=== PATIENT | male | born 1970 | race Hispanic/Latino ===

== ENCOUNTER 2018-05-26 11:22 | Emergency (ER) | payer OTHER ==
[2018-05-26] MEDS ORDERED: NA BORATE/BORIC AC/H2O/NACL 120 ML OPHTH IRRIG SOLN ONE (13:05)
[2018-05-26] MEDS ORDERED: FLUORESCEIN SODIUM 1 STRIP STRIP ONE (13:05)
[2018-05-26] MEDS ORDERED: TETRACAINE HCL 0.5% 4 ML OPHTH SOLN ONE (13:05)
[2018-05-26] MEDS ORDERED: TETANUS/DIPHTHERIA TOXOID [ADULT] 0.5 ML VIAL IM ONE (13:39)
== END 2018-05-26 14:01 | disposition home or self-care (01) ==
LOC: EDH 11:22
DX: S05.02XA Injury of conjunctiva and corneal abrasion without foreign body, left eye, initial encounter (principal); Z87.891 Personal history of nicotine dependence; X58.XXXA Exposure to other specified factors, initial encounter; Y93.89 Activity, other specified; Y92.89 Other specified places as the place of occurrence of the external cause; Y99.8 Other external cause status
CPT/HCPCS: 90471; 90714

== ENCOUNTER 2019-01-15 12:10 | Emergency (ER) | payer OTHER ==
[2019-01-15] MEDS ORDERED: KETOROLAC TROMETHAMINE 30MG/ML ONE (12:43)
[2019-01-15] MEDS ORDERED: ACETAMINOPHEN EXTRA STRENGTH 500 MG TABLET ONE (12:50)
== END 2019-01-15 14:48 | disposition left against medical advice (07) ==
LOC: EDH 12:10
DX: M54.5 Low back pain (principal); W18.39XA Other fall on same level, initial encounter; Y93.89 Activity, other specified; Y92.89 Other specified places as the place of occurrence of the external cause; Y99.8 Other external cause status
CPT/HCPCS: 72100; 72131; 99284; J1885

== ENCOUNTER 2024-01-19 05:25 | Emergency (ER) | payer SELFPAY ==
[~2024-01-19] VITALS: Ht 167.6 cm; Wt 77.1 kg
[2024-01-19 05:27] VITALS: TEMP 98.1
--- NOTE | 2024-01-19 05:31 | ERN ---
ED Note History of Present Illness Stated Complaint: C/O ABD PAIN WITH N X V AFTER FALL 2 DAYS AGO Chief Complaint: Abdominal Pain Time Seen by MD: 05:27 Dictation: This is a 53-year-old male who looks much older than that has never had any routine health care was brought into the hospital emergency room with complaints of lower back pain and abdominal discomfort as well as distention for the past few days. Patient also reports some nausea and vomitings. No history of any fevers or chills, hematemesis or melena. He reports falling 2 days ago after accidentally tripping and basically landed on his buttocks. No loss of consciousness. No weakness. No new visual disturbance but the reports poor vision due to left eye corneal opacification. No history of any bladder or bowel incontinence. No ambulatory issues. Temperature 98.1 pulse 84 respirations 20 blood pressure 116/65 pulse oximetry 95% on room air Allergies: Coded Allergies: No Known Allergies (Unverified Allergy, Unknown, 01/19/24) Past Medical History Family History: Negative Social History: Smokers, ETOH RN Note Reviewed/Agreed w/PFSH: Yes Review of System Dictation Constitutional: Negative for fever,chills, and weight loss Eyes: Negative for injury, pain,redness, and discharge ENT: Negative for injury,pain or swelling Cardiovascular: Negative for chest pain, palpitations, and edema Respiratory: Negative for shortness of breath, cough, and wheezing, Abdomen/GI: Positive for abdominal pain, nausea, vomiting, denies any diarrhea, and constipation Back: Positive for recent fall and pain : Negative for injury, bleeding and discharge MS/Extremity: Negative for injury and deformity Skin: Negative for rash, and discoloration Neuro: Negative for headache, weakness, numbness, tingling, and seizure Psych: Negative for suicide ideation, homicidal ideation, and hallucinations Initial Vital Sign VS Vital Signs Date Time Temp Pulse Resp B/P (MAP) Pulse Ox O2 Delivery O2 Flow Rate FiO2 01/19/24 05:27 98.1 84 20 116/65 100 Room Air 01/19/24 06:01 0 21 Physical Exam Dictation General: awake, alert, NAD appears much older and chronically sick Head/Face: Normocephalic, atraumatic Eyes: PERRL, EOMI, vision at baseline left eye corneal opacification ENT: oral cavity clear, TMs clear, no signs of infection Neck: Trachea midline, supple, no nuchal rigidity Cardiovascular: RRR, normal S1/S2, No MRGs, no JVD Respiratory: CTAB, no respiratory distress, No rales or wheezes Abdomen: Soft, mild-tender mildly distended could not appreciate hepatosplenomegaly or any masses. MS/Extremity: Pulses equal, no cyanosis, neurovascular intact, FROM tenderness in the lower right sacroiliac area Neuro: COAx4, GCS 15, strength 5/5, CN 2-12 intact, normal cerebellar exam, normal gait, Psych: Normal behavior, mood, and affect normal Extremities-trace edema without any palpable cords, Homans sign is negative Results (Laboratory/Radiology) Laboratory/Radiology Laboratory Tests Test 01/19/24 05:42 01/19/24 06:00 White Blood Count 10.4 K/uL (4.8-10.8) Red Blood Count 2.71 MIL/uL (4.50-6.20) L Hemoglobin 9.1 g/dL (14.0-18.0) L Hematocrit 26.5 % (42-54) L Mean Corpuscular Volume 97.8 fL (79-99) Mean Corpuscular Hemoglobin 33.6 pg (27.0-33.0) H Mean Corpuscular Hemoglobin Concent 34.3 g/dL (32.0-36.0) Red Cell Distribution Width 16.7 % (11.0-15.5) H Platelet Count 64 K/uL (130-400) L Mean Platelet Volume 11.1 fL (7.5-10.5) H Immature Granulocyte % (Auto) 0.5 % (0-1) Neutrophils (%) (Auto) 66.5 % (40.0-77.0) Lymphocytes (%) (Auto) 23.6 % (21.0-51.0) Monocytes (%) (Auto) 8.1 % (3.0-13.0) Eosinophils (%) (Auto) 0.7 % (0.0-8.0) Basophils (%) (Auto) 0.6 % (0.0-5.0) Neutrophils # (Auto) 6.9 K/uL (1.8-7.7) Lymphocytes # (Auto) 2.5 K/uL (1.0-4.8) Monocytes # (Auto) 0.8 K/uL (0.1-1.0) Eosinophils # (Auto) 0.07 K/uL (0.00-0.70) Basophils # (Auto) 0.06 K/uL (0.00-0.20) Absolute Immature Granulocyte (auto 0.05 K/uL (0-1) Nucleated Red Blood Cells 0.0 % (0.0-0.19) Platelet Morphology Comment See comments Sodium Level 137 mmol/L (136-145) Potassium Level 3.8 mmol/L (3.5-5.1) Chloride Level 105 mmol/L (101-111) Carbon Dioxide Level 26 mmol/L (21-32) Blood Urea Nitrogen 19 mg/dL (7-18) H Creatinine 0.9 mg/dL (0.5-1.3) Glomerular Filtration Rate Calc 101 mL/min (>90) Random Glucose 117 mg/dL (70-105) H Total Calcium 8.5 mg/dL (8.5-10.1) Lipase 48 U/L (16-77) Urine Color LIGHT-YELLOW (YELLOW) Urine Appearance CLEAR (CLEAR) Urine pH 7.0 (5.0-8.0) Urine Specific [place] 1.015 (1.001-1.031) Urine Protein NEGATIVE mg/dL (NEGATIVE) Urine Glucose (UA) NEGATIVE mg/dL (NEGATIVE) Urine Ketones NEGATIVE mg/dL (NEGATIVE) Urine Occult Blood NEGATIVE (NEGATIVE) Urine Nitrate NEGATIVE (NEGATIVE) Urine Bilirubin NEGATIVE mg/dL (NEGATIVE) Urine Urobilinogen 0.2 mg/dL (0.2-1.0) Urine Leukocyte Esterase NEGATIVE Kori/uL Labs Reviewed?: Yes CT Scan Comment: [id number] [address] IMAGING REPORT Signed PATIENT: CHILANGO FERRO MR#: [id number] : 1970 SEX: M AGE: 53 LOCATION: [facility] ORDER 2 STATUS: REG ER REPORT#: [id number] SERVICE 1 REASON: ABD PAIN ORDERING PHYSICIAN: CARROLL THAPA MD PROCEDURE: ABD PEL WO - CT ABDOMEN/PELVIS W/O CONTRAST CT ABDOMEN/PELVIS W/O CONTRAST HISTORY: Abdominal pain COMPARISON: None TECHNIQUE: Multiple sequential axial images of the abdomen and pelvis were obtained from the dome of the diaphragm through symphysis pubis. Patient was not given contrast through intravenous route. Oral contrast was not given. FINDINGS: No pleural effusion is seen bilaterally. There is no evidence of parenchymal disease or pulmonary nodule of the visualized lower lungs. Degenerative changes of the thoracolumbar spine are present. The heart is not enlarged. A small hiatal hernia is seen. Cirrhotic changes of the liver are noted. Liver measures 15 cm. Spleen measured 9.5 cm. There are abdominal varices. Nonspecific small bowel wall thickening is seen. Spleen, adrenal glands and pancreas are unremarkable. There is no evidence of hydronephrosis bilaterally. No evidence of renal stone is seen. Fecal material is seen in the colon. There are normal size retroperitoneal and mesenteric lymph nodes. Small ascites is seen. Atherosclerotic changes are present. Pelvic sidewalls are symmetric bilaterally. Bladder is well distended without wall thickening. IMPRESSION: 1. Cirrhotic liver with small ascites. CT was performed with one or more following dose reduction techniques: automated exposure control, adjustment of the mA and kv according to patient's size, or use of a iterative reconstruction technique. DICTATED BY: TONY SHELL MD DATE: 01/19/24820 ELECTRONICALLY SIGNED BY: TONY SHELL MD DATE: 01/19/24825 ED Course ED Course Orders Procedure Category Date Status Time Cbc With Differential LAB 01/19/24 Complete 05:32 Ondansetron 4mg Inj PHA 01/19/24 Complete (Zofran 4mg Inj) 06:00 Lipase LAB 01/19/24 Complete 05:32 Basic Metabolic Panel LAB 01/19/24 Complete 05:32 Urinalysis Profile LAB 01/19/24 Complete 05:44 Morphine 4mg Syg PHA 01/19/24 Complete (Morphine 4mg Syg) 06:00 Morphine 4mg Syg PHA 01/19/24 Complete (Morphine 4mg Syg) 06:00 Us Abdominal Complete US 01/19/24 Resulted 06:09 Ct Abdomen/Pelvis W/O CT 01/19/24 Resulted Contrast 08:02 Current Medications Medications (Trade) Dose Ordered Sig/Jenifer Route PRN Reason Start Time Stop Time Status Last Admin Dose Admin Morphine Sulfate (morPHINE 4MG SYG) 4 mg ONCE ONCE IM 01/19/24 06:00 11/8/24 06:01 DC Morphine Sulfate (morPHINE 4MG SYG) 4 mg ONCE ONCE IVP 01/19/24 06:00 01/19/24 06:01 DC 01/19/24 05:54 Ondansetron HCl (zoFRAN 4MG INJ) 4 mg ONCE ONCE IVP 01/19/24 06:00 01/19/24 06:01 DC 01/19/24 05:47 Vital Signs Date Time Temp Pulse Resp B/P (MAP) Pulse Ox O2 Delivery O2 Flow Rate FiO2 01/19/24 07:01 90 18 126/67 100 Room Air* 0 21 01/19/24 06:01 99 18 126/67 96 Room Air* 0 21 01/19/24 05:27 98.1 84 20 116/65 100 Room Air We will perform diagnostic labs, advanced imaging and administer medications according to the patient's complaint. Once the results are available, will review and personally interpreted the labs to rule out any acute life-th reatening emergency the trach require immediate intervention and treatment. I will then re-evaluate the patient after treatment and diagnostic exams have return to determine whether the patient requires any further testing, can safely be discharged home or need further admission to hospital for additional treatment and evaluation. Medical Decision Making MDM MDM: Differential diagnosis:Peptic ulcer disease, gastritis, cholecystitis, intra- abdominal bleed or hematoma from recent fall, pancreatitis Rationale: Tests considered and ordered secondary to shared decision making include: Previous outside records reviewed: Old ER visits. Risk of complication and/or morbidity or mortality of patient management: None Medications-Per medication reconciliation Need for hospitalization: Patient does not meet criteria for hospitalization. Need for emergency major/minor surgery: No There are no social concerns with this patient. Prescription drug management Prescriptions will include symptomatic care Patient's prior external medical records from other ER visits were reviewed by me as indicated. Prior testing and results from previous visits were reviewed. Prior tests were taken into account with medical decision making and resource utilization, independent historian/historians were used to obtain complete medical history. I independently interpreted the test that were performed, results were reviewed by me and considered findings on radiology if ordered. Medical management and examination interpretation discussions were had by me with other qualified healthcare professionals as indicated for the patient's care. Problem List Problem List: (1) Abdominal pain (2) Ground-level fall (3) Anemia (4) Thrombocytopenia (5) Cirrhosis of liver DX & DISP Disposition: Discharge Departure Impression: Primary Impression: Ground-level fall Additional Impressions: Anemia, Thrombocytopenia, Cirrhosis of liver, Ascites Condition: Stable Additional Instructions: Patient and the caregiver have been informed of all the diagnostic tests and the imaging conducted during the today's visit to the emergency room and has verbalized understanding of the results I have personally reviewed and interpre fausto all diagnostic exams performed here in the ER today as well as the vital signs documented by the nursing staff. The patient is now being discharged to home and should follow up with the primary care physician or the specialist as directed by the ER staff. Follow-up with primary care provider in 1 to 2 days. Take medications as directed here in the emergency room. Okay to continue home medications unless otherwise discussed during your visit in the emergency room today. Return to your nearest emergency room if symptoms worsen or if there is no improvement. Call 911 if you need immediate assistance. Take Tylenol or Motrin o [id number] as needed and if no contraindications are present. Increase oral hydration. A wound culture or urine culture was ordered here in the emergency room department please follow-up with primary care provider and advise them to get repeat ports from our facility. If you had any [place] wrap/splints that were applied here, please do not remove them until you see your primary care or specialty. Extensive counseling on alcohol abstinence and the available information was discussed with patient and spouse. Given resources to get established with a primary care physician for management of alcoholic liver disease and cirrhosis. Referrals: SELF,REFERRAL (PCP) MICKIE PETIT MD Time of Disposition: 08:41 JOSE AYON MD Jan 19, 2024 05:31 CARROLL THAPA MD Jan 19, 2024 08:42
[2024-01-19] MEDS: ondanSETRON 4MG INJ IVP ONE (05:47)
[2024-01-19 05:50] LABS: BASOPHILS # (AUTO) 0.06 K/uL (0.00-0.20); BASOPHILS % (AUTO) 0.6 % (0.0-5.0); EOSINOPHILS # (AUTO) 0.07 K/uL (0.00-0.70); EOSINOPHILS % (AUTO) 0.7 % (0.0-8.0); HEMATOCRIT 26.5 % (42-54); IMMATURE GRANULOCYTE ABSOLUTE 0.05 K/uL (0-1); LYMPHOCYTES # (AUTO) 2.5 K/uL (1.0-4.8); LYMPHOCYTES % (AUTO) 23.6 % (21.0-51.0); MEAN CORPUSCULAR HEMOGLOBIN 33.6 pg (27.0-33.0); MEAN CORPUSCULAR HGB CONC 34.3 g/dL (32.0-36.0); MEAN CORPUSCULAR VOLUME 97.8 fL (79-99); MONOCYTES # (AUTO) 0.8 K/uL (0.1-1.0); MONOCYTES % (AUTO) 8.1 % (3.0-13.0); NEUTROPHILS # (AUTO) 6.9 K/uL (1.8-7.7); NEUTROPHILS % (AUTO) 66.5 % (40.0-77.0); PLATELET COUNT (AUTO) 64 K/uL (130-400); RED BLOOD CELL COUNT(AUTO) 2.71 MIL/uL (4.50-6.20); RED CELL DISTRIBUTION WIDTH 16.7 % (11.0-15.5); WHITE BLOOD COUNT (AUTO) 10.4 K/uL (4.8-10.8)
[2024-01-19] MEDS: morPHINE 4 MG SYG IM ONE (05:51)
[2024-01-19] MEDS: morPHINE 4 MG SYG IVP ONE (05:54)
[2024-01-19 05:56] LABS: CREATININE 0.9 mg/dL (0.5-1.3); POTASSIUM 3.8 mmol/L (3.5-5.1)
[2024-01-19 07:01] VITALS: BP 126/67; PULSE 90; RESP 18; O2SAT 100
[2024-01-19 07:44] LABS: APPEARANCE,URINE CLEAR (CLEAR); BILIRUBIN,URINE NEGATIVE (NEGATIVE); COLOR,URINE LIGHT-YELLOW (YELLOW); GLUCOSE, URINE (UA) NEGATIVE (NEGATIVE); KETONES,URINE NEGATIVE (NEGATIVE); LEUKOCYTE ESTERASE ,URINE NEGATIVE Leu/uL (NEGATIVE); NITRATE,URINE NEGATIVE (NEGATIVE); OCCULT BLOOD,URINE NEGATIVE (NEGATIVE); PROTEIN,URINE NEGATIVE (NEGATIVE); UROBILINOGEN,URINE 0.2 mg/dL (0.2-1.0)
[2024-01-19 07:52] LABS: ADD UA MICROSCOPIC NO
--- NOTE | 2024-01-19 08:26 | HMCIMG ---
CT ABDOMEN/PELVIS W/O CONTRAST HISTORY: Abdominal pain COMPARISON: None TECHNIQUE: Multiple sequential axial images of the abdomen and pelvis were obtained from the dome of the diaphragm through symphysis pubis. Patient was not given contrast through intravenous route. Oral contrast was not given. FINDINGS: No pleural effusion is seen bilaterally. There is no evidence of parenchymal disease or pulmonary nodule of the visualized lower lungs. Degenerative changes of the thoracolumbar spine are present. The heart is not enlarged. A small hiatal hernia is seen. Cirrhotic changes of the liver are noted. Liver measures 15 cm. Spleen measured 9.5 cm. There are abdominal varices. Nonspecific small bowel wall thickening is seen. Spleen, adrenal glands and pancreas are unremarkable. There is no evidence of hydronephrosis bilaterally. No evidence of renal stone is seen. Fecal material is seen in the colon. There are normal size retroperitoneal and mesenteric lymph nodes. Small ascites is seen. Atherosclerotic changes are present. Pelvic sidewalls are symmetric bilaterally. Bladder is well distended without wall thickening. IMPRESSION: 1. Cirrhotic liver with small ascites. CT was performed with one or more following dose reduction techniques: automated exposure control, adjustment of the mA and kv according to patient's size, or use of a iterative reconstruction technique.
--- NOTE | 2024-01-19 08:56 | HMCIMG ---
US ABDOMINAL COMPLETE HISTORY: Abdominal pain COMPARISON: CT from the same day TECHNIQUE: Multiple transverse and longitudinal ultrasound images of the abdomen were obtained. FINDINGS: Liver measured 14.8 cm. The visualized portion of the pancreas is within normal limits. Liver is echogenic consistent with liver parenchymal disease. Body changes of the liver are noted with contour irregularity. No gallstone is seen. Common duct measures 4 mm. Gallbladder wall measures 4 mm. Both kidneys are seen. Right kidney measures 11.8 x 6.2 x 5.5 cm. Left kidney measures 10.7 x 6.1 x 5.9 cm. No hydronephrosis is seen of the both kidneys. The spleen is grossly unremarkable. There is ascites. There appears to be complex structure adjacent right kidney measuring 10.5 x 4.7 x 5.6 centimeter may be related to complex ascites with subtle mass lesion not completely excluded. This may also be related to right perinephric complex fluid collection. IMPRESSION: 1. No gallstone or ductal dilatation is seen. Cirrhotic liver. There is ascites. There appears to be complex structure adjacent right kidney measuring 10.5 x 4.7 x 5.6 centimeter may be related to complex ascites with subtle mass lesion not completely excluded. This may also be related to right perinephric complex fluid collection. 2. No hydronephrosis is seen.
== END 2024-01-19 09:04 | disposition home or self-care (01) ==
LOC: EDH 05:25
DX: D64.9 Anemia, unspecified (principal); K74.60 Unspecified cirrhosis of liver; D69.6 Thrombocytopenia, unspecified; R18.8 Other ascites; F17.200 Nicotine dependence, unspecified, uncomplicated; M54.50 Low back pain, unspecified; W01.0XXA Fall on same level from slipping, tripping and stumbling without subsequent striking against object, initial encounter; Y93.89 Activity, other specified; Y92.89 Other specified places as the place of occurrence of the external cause; Y99.8 Other external cause status
CPT/HCPCS: 99285; 74176; 96374; 76700; 96375; 80048; 83690; 85025; 81003; 36415; J2405; J2270